=== PATIENT | female | born 1950 | race Caucasian/White ===

== ENCOUNTER 2016-09-12 11:16 | Day surgery (SDC) | payer MEDICARE, MEDICAID ==
[2016-09-12] MEDS ORDERED: PROPOFOL 10 MG/ML VIAL IV ONE (14:00)
[2016-09-12] MEDS ORDERED: LIDOCAINE 2% MDV (20MG/ML) 20ML VIAL IV ONE (14:00)
[2016-09-12] MEDS ORDERED: MIDAZOLAM HCL 2MG/2ML VIAL IV ONE (14:00)
--- NOTE | 2016-09-17 09:49 | Operative Note ---
DATE OF SURGERY: 09/12/2016 OPERATION: COLONOSCOPY with cold forceps polypectomy. PREOPERATIVE DIAGNOSIS: History of polyps. POSTOPERATIVE DIAGNOSIS: Sigmoid polyp. PREPARATION QUALITY: Good. ESTIMATED BLOOD LOSS: Minimal. COMPLICATIONS: None apparent. SPECIMENS: Sigmoid polyp. PROCEDURE: After informed consent was obtained from the patient, she was placed in the left lateral decubitus position, sedated and monitored by the department of anesthesia. Digital rectal exam was unremarkable other than some non-thrombosed external hemorrhoids. A well-lubricated [id number] colonoscope was inserted into the rectum and advanced to the cecum. The ileocecal valve, appendiceal orifice, cecum, ascending colon, transverse colon, and descending colon were free of inflammatory changes, mass lesions, or polyps. The preparation quality noted was good. There was a 3 mm sigmoid polyp which was removed with a cold forceps. Minimal bleeding was noted. The polyp was retrieved. The remainder of the sigmoid colon and rectum were unremarkable. Forward and J-turn views of the rectum and anorectum were unremarkable. The endoscope was straightened, the rectal ampulla deflated, and the endoscope was removed. RECOMMENDATIONS: The patient should resume her medications and diet. We will await tissue histology but expect she will require repeat exam in 5 years. As always, thank you for allowing me to participate in the healthcare of your patients. CC: AMY Cortes
== END 2016-09-12 13:45 | disposition home or self-care (01) ==
LOC: HOP 11:16
PROVIDERS: ATTEND Internal Medicine Gastroenterology
DX: Z12.11 Encounter for screening for malignant neoplasm of colon (principal); D12.5 Benign neoplasm of sigmoid colon; Z86.010 Personal history of colon polyps; Z80.0 Family history of malignant neoplasm of digestive organs; E78.00 Pure hypercholesterolemia, unspecified; E03.9 Hypothyroidism, unspecified